=== PATIENT | female | born 1980 | race Caucasian/White ===

== ENCOUNTER 2022-08-17 19:30 | Emergency (ER) | payer MEDICAID, OTHER ==
[~2022-08-17] VITALS: Ht 162.6 cm; Wt 122.3 kg
[2022-08-18 00:13] VITALS: BP 149/80
== END 2022-08-18 02:20 | disposition home or self-care (01) ==
LOC: EDSEX 19:30 → M ED 19:30
DX: M25.561 Pain in right knee (principal); Z87.442 Personal history of urinary calculi; M54.9 Dorsalgia, unspecified; F17.200 Nicotine dependence, unspecified, uncomplicated